=== PATIENT | male | born 1935 | race Caucasian/White ===

== ENCOUNTER → 2020-10-13 08:53 | Outpatient (BNVA) | payer MEDICARE, BC, SELFPAY | PROVIDERS: Referring Provider Internal Medicine; Visit Provider Nurse Practitioner Adult Health | DX: R41.89 Other symptoms and signs involving cognitive functions and awareness (principal); E11.22 Type 2 diabetes mellitus with diabetic chronic kidney disease; I12.9 Hypertensive chronic kidney disease with stage 1 through stage 4 chronic kidney disease, or unspecified chronic kidney disease; N18.9 Chronic kidney disease, unspecified | CPT/HCPCS: 99204; 99205; G2212 ==

== ENCOUNTER → 2020-11-25 13:16 | Outpatient (BNVA) | payer MEDICARE, BC, SELFPAY | PROVIDERS: Visit Provider Nurse Practitioner Adult Health | DX: R41.89 Other symptoms and signs involving cognitive functions and awareness (principal) | CPT/HCPCS: 99214; 99215 ==

== ENCOUNTER 2023-09-26 07:09 | Outpatient (REF) | payer MEDICARE, BC, SELFPAY ==
[2023-09-26 09:40] LABS: Abs Immature Grans 0.02 10^3/uL (0.0-0.06); Absolute Basophil Count 0.04 10^3/uL (0.0-0.2); Absolute Eosinophil Count 0.38 10^3/uL (0.0-0.7); Absolute Lymphocyte Count 1.64 10^3/uL (1.2-3.4); Absolute Monocyte Count 0.71 10^3/uL (0.1-0.8); Absolute Neutrophil Count 3.42 10^3/uL (1.2-6.7); Basophils % 0.6; Eosinophils % 6.1; HCT 29.3 % (40.0-50.0); HGB 9.6 g/dL (13.5-17.5); Immature Grans % 0.3; Lymphocytes % 26.4; MCH 30.1 pg (27.0-33.0); MCHC 32.8 % (32.0-36.0); MCV 92 fL (80-95); MPV 10.8 fL (8.0-11.0); Monocytes % 11.4; Neutrophils % 55.2; Platelet Count 170 10^3/uL (130-400); RBC 3.19 10^6/uL (4.36-5.78); RDW 12.9 % (11.8-14.1); WBC 6.21 10^3/uL (4.4-10.8)
[2023-09-26 10:00] LABS: ALT 13 U/L (16-63); AST 12 U/L (15-37); Albumin 2.6 g/dL (3.4-5.0); Alkaline Phosphatase 58 U/L (46-116); Anion Gap 10.3 mmol/L (3-11); BUN 53 mg/dL (7-18); Bilirubin, Total 0.3 mg/dL (0.2-1.0); CO2 25.7 mmol/L (21.0-32.0); CREATININE 2.3 mg/dL (0.70-1.30); Calcium 8.3 mg/dL (8.5-10.1); Chloride 110 mmol/L (98-107); Estimated GFR 26.98 (mL/min/1.73m2); Glucose 72 mg/dL (74-106); Potassium 4.8 mmol/L (3.5-5.1); Sodium 146 mmol/L (136-145); Total Protein 5.4 g/dL (6.4-8.2)
[2023-09-26 17:30] LABS: Hemoglobin A1C 7.1 % (<5.7)
[2023-09-26 17:39] LABS: TSH 2.39 uIU/Ml (0.36-3.74)
== END 2023-09-26 07:10 | disposition home or self-care (01) ==
LOC: LBN 07:09
PROVIDERS: PCP Family Medicine; Visit Provider Family Medicine
DX: D45 Polycythemia vera (principal); Z90.6 Acquired absence of other parts of urinary tract
CPT/HCPCS: 80053; 80164; 83036; 84443; 85025

== ENCOUNTER 2023-10-05 17:00 | Emergency (ER) | payer MEDICARE, BC, SELFPAY ==
[2023-10-05 17:01] VITALS: BP 196/81; PULSE 70; RESP 16; TEMP 37; O2SAT 96
--- NOTE | 2023-10-05 17:17 | ED.GENADUL_ITS ---
Discharge Plan Disposition Patient Disposition: [facility](SNF) Condition: Stable Discharge Details Clinical Impression: Anticoagulant long-term use, Dementia, Fall Primary Care Provider: Wade Sharma ED Provider: Christine Herrmann Home Meds and New Rx's Prescriptions: Continued cholecalciferol (vitamin D3) 25 mcg (1,000 unit) capsule 25 mcg PO DAILY acetaminophen 325 mg capsule 650 mg PO Q6H PRN amlodipine 5 mg tablet 10 mg PO DAILY aspirin 81 mg tablet,chewable 81 mg PO DAILY atenolol 100 mg tablet 25 mg PO DAILY Combivent Respimat 20-100 mcg/actuation mist 1 puff inhalation QID Rx Instructions: space evenly during waking hours fluticasone propionate 50 mcg/actuation spray,suspension 1 spray intranasal DAILY PRN Rx Instructions: administer into each nostril folic acid 1 mg tablet 1 mg PO DAILY omeprazole 20 mg capsule,delayed release(DR/EC) 20 mg PO DAILY vitamin [id number] acid 500-400 mcg tablet 1 tab PO DAILY Rx Instructions: administer with a meal dicyclomine 20 mg tablet 40 mg PO ONCE PRN rosuvastatin 10 mg tablet 20 mg PO DAILY atorvastatin 40 mg tablet 40 mg PO DAILY Patient Comments: TAKE 1 TABLET BY MOUTH EVERY DAY clopidogrel 75 mg tablet 75 mg PO DAILY Patient Comments: TAKE 1 TABLET BY MOUTH DAILY divalproex [Depakote] 125 mg tablet,delayed release (DR/EC) 250 mg PO QHS divalproex [Depakote ER] 250 mg tablet extended release 24 hr 125 mg PO TID escitalopram oxalate 5 mg tablet 5 mg PO DAILY bisacodyl [Dulcolax (bisacodyl)] 10 mg suppository 10 mg UT DAILY PRN lisinopril 20 mg tablet 20 mg PO DAILY Patient Comments: TAKE 1 TABLET BY MOUTH DAILY magnesium oxide 400 mg (241.3 mg magnesium) tablet 400 mg PO DAILY Patient Comments: TAKE 1 TABLET BY MOUTH DAILY pantoprazole 20 mg tablet,delayed release (DR/EC) 40 mg PO DAILY Patient Comments: TAKE 1 TABLET BY MOUTH DAILY olanzapine [Zyprexa] 2.5 mg tablet 2.5 mg PO DAILY olanzapine [Zyprexa] 2.5 mg tablet 2.5 mg PO DAILY PRN Discharge Instructions Instructions: Fall Prevention for Older Adults (ED) Additional Instructions: Follow up with primary care doctor within one week- you may need a brain MRI as it looks like there are possibly some new strokes or mass since 2020. Return to the emergency department for new or worsening symptoms including vomiting, numbness, focal weakness, vertigo, or if you have any other concerns. Referrals: Wade Sharma [Primary Care Provider] - [facility] General Date/Time Provider Initiated Documentation: 10/05/23 17:17 . Limitations to Documentation: no limitations . Information obtained by: patient, EMS and old records reviewed . HPI Narrative: 88yo M with dementia, on eliquis presenting [facility] after unwitnessed fall at some point today. Per EMS nursing facility staff reported patient is at his baseline. Patient denies LOC, unsure when he fell today. Reports mild headache, otherwise denies pain; declines pain medication. He is otherwise in his usual state of health with no fevers, chills, rash, nausea, vomiting, chest pain, shortness of breath, abdominal pain, numbness, tingling, weakness, vertigo, vision changes, lightheadedness, or other concerns. Related Data Home Medications Medication Instructions Recorded Confirmed acetaminophen 325 mg capsule 650 mg PO Q6H PRN 09/09/20 10/05/23 amlodipine 5 mg tablet 10 mg PO DAILY 09/09/20 10/05/23 aspirin 81 mg chewable tablet 81 mg PO DAILY 09/09/20 10/05/23 atenolol 100 mg tablet 25 mg PO DAILY 09/09/20 10/05/23 fluticasone propionate 50 1 spray intranasal DAILY PRN 09/09/20 10/05/23 mcg/actuation nasal spray,suspension folic acid 1 mg tablet 1 mg PO DAILY 09/09/20 10/05/23 ipratropium 20 mcg-albuterol 100 1 puff inhalation QID 09/09/20 10/05/23 mcg/actuation mist for inhalation (Combivent Respimat) omeprazole 20 mg capsule,delayed 20 mg PO DAILY 09/09/20 10/05/23 release vitamin B12 500 mcg-folic acid 400 1 tab PO DAILY 09/09/20 10/05/23 mcg tablet cholecalciferol (vitamin D3) 25 25 mcg PO DAILY 10/13/20 10/05/23 mcg (1,000 unit) capsule dicyclomine 20 mg tablet 40 mg PO ONCE PRN 11/25/20 10/05/23 rosuvastatin 10 mg tablet 20 mg PO DAILY 11/25/20 10/05/23 atorvastatin 40 mg tablet 40 mg PO DAILY 10/05/23 10/05/23 bisacodyl 10 mg rectal suppository 10 mg UT DAILY PRN 10/05/23 10/05/23 (Dulcolax (bisacodyl)) clopidogrel 75 mg tablet 75 mg PO DAILY 10/05/23 10/05/23 divalproex 125 mg tablet,delayed 250 mg PO QHS 10/05/23 10/05/23 release (Depakote) divalproex 250 mg tablet,extended 125 mg PO TID 10/05/23 10/05/23 release 24 hr (Depakote ER) escitalopram oxalate 5 mg tablet 5 mg PO DAILY 10/05/23 10/05/23 lisinopril 20 mg tablet 20 mg PO DAILY 10/05/23 10/05/23 magnesium oxide 400 mg (241.3 mg 400 mg PO DAILY 10/05/23 10/05/23 magnesium) tablet olanzapine 2.5 mg tablet (Zyprexa) 2.5 mg PO DAILY 10/05/23 10/05/23 olanzapine 2.5 mg tablet (Zyprexa) 2.5 mg PO DAILY PRN 10/05/23 10/05/23 pantoprazole 20 mg tablet,delayed 40 mg PO DAILY 10/05/23 10/05/23 release Allergies Allergy/AdvReac Type Severity Reaction Status Date / Time latex Allergy Mild rash Verified 10/05/23 17:14 aspirin [From Aggrenox] Allergy Unknown Other (See Verified 10/05/23 17:14 Comment) atorvastatin Allergy Unknown Other (See Verified 10/05/23 17:14 Comment) dipyridamole [From Aggrenox] Allergy Unknown Other (See Verified 10/05/23 17:14 Comment) levofloxacin Allergy Unknown Other (See Verified 10/05/23 17:14 Comment) pioglitazone [From Actos] AdvReac Mild nausea Verified 10/05/23 17:14 General Stated Complaint: HeadInjury LEON: 3 Review of Systems Narrative: see HPI Exam Narrative Exam Narrative: GENERAL: Alert, in no acute distress. SKIN: Warm and well perfused. HEAD: Small abrasion to right posterior scalp, hemostatic. Facial bones without deformities or tenderness. EYES: PERRL. No scleral icterus or conjunctival injection. Extraocular muscles intact without nystagmus or diplopia. No proptosis or enophthalmos. EARS: Normal appearing pinnae. NOSE: No discharge. No nasal septal hematoma. MOUTH: No malocclusion or trismus. Moist mucus membranes without blood. NECK: Trachea midline. No discolorations or edema. CV: Regular rate and rhythm, Normal s1 and s2. No murmurs, rubs, or gallops. PV: Radial pulses 2+ bilaterally and symmetric. 2+ capillary refill. No extremity edema. CHEST: No abrasions or ecchymosis. Chest symmetric with respirations. No chest wall tenderness. Lungs are clear to auscultation bilaterally. ABDOMEN: No ecchymosis or abrasions. Soft, nondistended, nontender. BACK: No abrasions, skin openings. ~4cm x 3cm oval echymosis to right low- thoracic region, appears old. Spine without bony tenderness, no step offs. PELVIC: Pelvis stable, nontender to lateral compression MSK: No gross deformities or discolorations or lesions. Tolerates full range of motion of extremities without tenderness. NEURO: ? GCS 14.? Fluent speech, no dysarthria. Motor- 5/5 strength symmetric bilateral upper and lower extremities Sensation- ?Intact to light touch and symmetric multiple dermatomes including upper and lower extremities Coordination- No dysmetria on finger to nose CRANIAL NERVES: II: Pupils equal and reactive, III, IV, : EOM intact, no gaze preference or deviation, no nystagmus. V: normal sensation in V1, V2, and V3 segments bilaterally VII: no asymmetry, no nasolabial fold flattening VIII: diminished hearing to speech IX, X: normal palatal elevation, no uvular deviation XI: 5/5 head turn and 5/5 shoulder shrug bilaterally XII: midline tongue protrusion Course Vital Signs Vital signs: Vital Signs Temperature 37.0 C 10/05/23 17:01 Pulse 70 10/05/23 17:01 Respiratory Rate 16 10/05/23 17:01 Blood Pressure 196/81 H 10/05/23 17:01 Pulse Oximetry 96 10/05/23 17:01 Temperature 37.0 C 10/05/23 17:01 Pulse 70 10/05/23 17:01 Respiratory Rate 16 10/05/23 17:01 Respiratory Effort Normal, Non-Labored 10/05/23 17:10 Respiratory Depth Normal 10/05/23 17:10 Respiratory Pattern Normal 10/05/23 17:10 Blood Pressure 196/81 H 10/05/23 17:01 Blood Pressure Position Sitting 10/05/23 17:01 Pulse Oximetry 96 10/05/23 17:01 Oxygen Delivery Method Room Air 10/05/23 17:01 Oxygen Flow Rate 0 10/05/23 17:01 Pain Level 0 10/05/23 17:10 Medical Decision Making 88yo M with hx stroke, CKD, HTN, T2DM, dementia, on eliquis presenting from [facility] after unwitnessed fall at some point today. Medical history from [facility] record review. Per EMS nursing facility staff reported patient is at his baseline. Patient denies LOC, unsure when he fell today. Reports mild headache, otherwise denies pain; declines pain medication. Hypertensive on arrival, vital signs otherwise reassuring. Small abrasion to posterior scalp, otherwise no acute traumatic findings (does have some fading echymosis to his back, patient not sure when this injury occurred). GCS 14, otherwise normal neurologic exam. Given patient is poor historian and on eliquis with known head strike, CT head/cspine ordered and independently reviewed. No acute hemmoraghe on my view, discussed with radiologist Dr. Adorno and agree with radiology read below. No indication for admission at this time; advised outpatient followup for further imaging to clarify incidental brain findings. Discharged back to [facility] Imaging Data Radiologic Study: Imaging: CT Scan Radiologist's impression: IMPRESSION: No evidence of acute cervical spine fracture, malalignment, nor acute compromise of the cervical spinal canal. Multilevel chronic degenerative disc disease. In the brain there is increased abnormal white matter hypodensity in the bilateral parietal regions, more so on the left side where there is white matter hypodensity significantly more than was evident on prior CT scan and MRI scan listed above. Either related to interval infarct or possibly edema. If clinically indicated follow-up contrast infused MRI can be performed to determine if there are underlying lesions. Quality:SDOH Health Related Social Needs: No Data to Display PFSH All Active Problems (Updated 10/05/23 @ 18:40 by Christine Herrmann MD) Fall (Acute) Dementia (Chronic) Anticoagulant long-term use (Acute) Cognitive changes (Acute) Medical History Actinic keratosis of multiple sites of head and neck Allergic rhinitis Carotid artery occlusion Cerebrovascular disease Chronic colitis Chronic kidney disease Cognitive changes Emphysema lung Ganglion cyst of dorsum of right wrist General unsteadiness Gout Hx of bladder problems Hyperlipidemia Hypertension Incisional hernia Lack of energy Leg fracture, left Localized edema Neurogenic dysfunction of the urinary bladder Obesity Osteoarthritis of knee, unspecified Simple chronic anemia Snoring Stroke Type 2 diabetes mellitus Urinary stress incontinence, male Vitamin D deficiency Surgical History H/O carotid endarterectomy H/O excision of ganglion cyst H/O hernia repair H/O ileostomy H/O prostatectomy H/O total knee replacement History of appendectomy History of carpal tunnel surgery History of esophagogastroduodenoscopy (EGD) Hx of cataract surgery Hx of colonoscopy Hx of shoulder surgery S/P left knee arthroscopy Family History Brother Prostate cancer Leukemia Brother Prostate cancer Diabetes BARBARA on CPAP Brother , AT 70 Myocardial infarction Father Myocardial infarction Diabetes Mother Cerebral hemorrhage Social History Smoking/Tobacco Use Status: Former Tobacco Use Smoking risk assessment performed?: Yes Alcohol Intake: never Drug use: Never Household members: spouse Housing: house Number of Children: 2 number of grandchildren: 4 Pets and animals: Yes Pets and animals: cat(s) What is your relationship status?: Panel score (0-1 are the most socially isolated patients): 1 What type of physical activity do you participate in: none Seatbelt use: always Do you feel safe at home: Yes Do you feel safe in your relationship?: Yes
--- NOTE | 2023-10-05 17:57 | DI.CT_ITS ---
Exam(s) CT HEAD CERVICAL SPINE WO EXAM: CT HEAD CERVICAL SPINE WO CLINICAL HISTORY: fall with HS, on eliquis. TECHNIQUE: Imaging Protocol: Axial computed tomography images with coronal and sagittal reformatted images were created and reviewed COMPARISON: CT CT HEAD WO CONTRAST from 05/26/2020 MR MR BRAIN WO CONTRAST from 11/02/2020 FINDINGS: BRAIN: There are no skull fractures nor fluid in the visualized paranasal sinuses. There is no evidence of intracranial hemorrhage, mass effect, or shift of midline structures. There are no extra-axial fluid collections. The ventricles are not enlarged or shifted and there is no blo od within the ventricular system nor within the basal cisterns. There is abundant bilateral periventricular hypodensity consistent with chronic small vessel disease. This has increased in both parietal lobes when compared to prior imaging studies, particularly on t he left side where there appears to be some probable edema in the high left parietal white matter. CERVICAL SPINE: No evidence of fracture, listhesis, nor offset of the spinal laminar line. There is multilevel chron ic disc space narrowing. There is mild facet arthropathy. No facet malalignment. No significant os seous lesions. IMPRESSION: No evidence of acute cervical spine fracture, malalignment, nor acute compromise of the cervical spin al canal. Multilevel chronic degenerative disc disease. In the brain there is increased abnormal white matter hypodensity in the bilateral parietal regions, more so on the left side where there is white matter hypodensity significantly more than was evident on prior CT scan and MRI scan listed above. Either related to interval infarct or possibly edema. I f clinically indicated follow-up contrast infused MRI can be performed to determine if there are unde rlying lesions. Called by myself to ER physician RADIATION DOSE DELIVERED: Total DLP DATA REPOSITORY: All CT scans at this facility are submitted to the National Radiology Data Registry (NRDR) Dose Index Registry (DIR) with the [employer] ([employer]). RADIATION OPTIMIZATION: All CT scans at this facility use at least one of these dose optimization te chniques: automated exposure control; mA and/or kV adjustment per patient size (includes targeted exa ms where dose is matched to clinical indication); or iterative reconstruction.
[2023-10-05 18:55] VITALS: BP 196/50; PULSE 63; RESP 14; O2SAT 97
== END 2023-10-05 19:12 | disposition skilled nursing facility (03) ==
PROVIDERS: Emergency Provider Student in an Organized Health Care Education/Training Program; PCP Family Medicine
DX: S00.01XA Abrasion of scalp, initial encounter (principal); F03.90 Unspecified dementia, unspecified severity, without behavioral disturbance, psychotic disturbance, mood disturbance, and anxiety; I12.9 Hypertensive chronic kidney disease with stage 1 through stage 4 chronic kidney disease, or unspecified chronic kidney disease; N18.9 Chronic kidney disease, unspecified; E11.22 Type 2 diabetes mellitus with diabetic chronic kidney disease; Z79.02 Long term (current) use of antithrombotics/antiplatelets; Z79.84 Long term (current) use of oral hypoglycemic drugs; Z79.82 Long term (current) use of aspirin; Z87.891 Personal history of nicotine dependence; W18.30XA Fall on same level, unspecified, initial encounter; Y92.099 Unspecified place in other non-institutional residence as the place of occurrence of the external cause
CPT/HCPCS: 99284; 70450; 72125

== ENCOUNTER 2023-10-27 10:20 | Emergency (ER) | payer MEDICARE, BC, SELFPAY ==
[2023-10-27] VITALS (212 sets, daily range): BP systolic 78–192; BP diastolic 27–80; PULSE 41–83; RESP 9–25; TEMP 36.4–36.7; O2SAT 89–100
--- NOTE | 2023-10-27 10:46 | ED.GENADUL_ITS ---
Discharge Plan Disposition Patient Disposition: Assisted Facility(SNF) Condition: Good Discharge Details Clinical Impression: Dementia, Agitation Primary Care Provider: Wade Sharma ED Provider: Christine Herrmann Home Meds and New Rx's Prescriptions: Continued cholecalciferol (vitamin D3) 25 mcg (1,000 unit) capsule 25 mcg PO DAILY acetaminophen 325 mg capsule 650 mg PO Q6H PRN amlodipine 5 mg tablet 10 mg PO DAILY aspirin 81 mg tablet,chewable 81 mg PO DAILY atenolol 100 mg tablet 25 mg PO DAILY Combivent Respimat 20-100 mcg/actuation mist 1 puff inhalation QID Rx Instructions: space evenly during waking hours fluticasone propionate 50 mcg/actuation spray,suspension 1 spray intranasal DAILY PRN Rx Instructions: administer into each nostril folic acid 1 mg tablet 1 mg PO DAILY omeprazole 20 mg capsule,delayed release(DR/EC) 20 mg PO DAILY vitamin D46-ckpoa acid 500-400 mcg tablet 1 tab PO DAILY Rx Instructions: administer with a meal dicyclomine 20 mg tablet 40 mg PO ONCE PRN rosuvastatin 10 mg tablet 20 mg PO DAILY atorvastatin 40 mg tablet 40 mg PO DAILY Patient Comments: TAKE 1 TABLET BY MOUTH EVERY DAY clopidogrel 75 mg tablet 75 mg PO DAILY Patient Comments: TAKE 1 TABLET BY MOUTH DAILY divalproex [Depakote] 125 mg tablet,delayed release (DR/EC) 250 mg PO QHS divalproex [Depakote ER] 250 mg tablet extended release 24 hr 125 mg PO TID escitalopram oxalate 5 mg tablet 5 mg PO DAILY bisacodyl [Dulcolax (bisacodyl)] 10 mg suppository 10 mg DC DAILY PRN lisinopril 20 mg tablet 20 mg PO DAILY Patient Comments: TAKE 1 TABLET BY MOUTH DAILY magnesium oxide 400 mg (241.3 mg magnesium) tablet 400 mg PO DAILY Patient Comments: TAKE 1 TABLET BY MOUTH DAILY pantoprazole 20 mg tablet,delayed release (DR/EC) 40 mg PO DAILY Patient Comments: TAKE 1 TABLET BY MOUTH DAILY olanzapine [Zyprexa] 2.5 mg tablet 2.5 mg PO DAILY olanzapine [Zyprexa] 2.5 mg tablet 2.5 mg PO DAILY PRN donepezil 5 mg tablet 5 mg PO DAILY Discharge Instructions Instructions: Dementia (ED) Additional Instructions: Your test today are reassuring including her CT abdomen and pelvis and CT head Your anemia has worsened ever so slightly dropped from 9.5-8.3, recommend having this rechecked It sounds like you are increasing the Zyprexa to 5 mg twice a day A referral has been placed to [facility] for further assessment from a neuropsych standpoint Please return should you have new or worsening complaints Discharge Data Discharge Date/Time-TO BE ENTERED AT DEPARTURE: 10/28/23 01:28 HPI <OLU Martinez - Last Filed: 10/28/23 08:15> General Date/Time Provider Initiated Documentation: 10/27/23 10:36 . HPI Narrative: This 88-year-old male is presenting to this facility with acute exacerbation of chronic agitation secondary to cognitive decline and vascular dementia. Patient has had frequent falls secondary to increase psychiatric medications and may feel that patient is declining, they like to exclude any medical cause of patient's complaints. Patient is a poor historian and unable to give me any additional history at this time. Related Data Home Medications Medication Instructions Recorded Confirmed acetaminophen 325 mg capsule 650 mg PO Q6H PRN 09/09/20 10/27/23 amlodipine 5 mg tablet 10 mg PO DAILY 09/09/20 10/27/23 aspirin 81 mg chewable tablet 81 mg PO DAILY 09/09/20 10/27/23 atenolol 100 mg tablet 25 mg PO DAILY 09/09/20 10/27/23 fluticasone propionate 50 1 spray intranasal DAILY PRN 09/09/20 10/27/23 mcg/actuation nasal spray,suspension folic acid 1 mg tablet 1 mg PO DAILY 09/09/20 10/27/23 ipratropium 20 mcg-albuterol 100 1 puff inhalation QID 09/09/20 10/27/23 mcg/actuation mist for inhalation (Combivent Respimat) omeprazole 20 mg capsule,delayed 20 mg PO DAILY 09/09/20 10/27/23 release vitamin B12 500 mcg-folic acid 400 1 tab PO DAILY 09/09/20 10/27/23 mcg tablet cholecalciferol (vitamin D3) 25 25 mcg PO DAILY 10/13/20 10/27/23 mcg (1,000 unit) capsule dicyclomine 20 mg tablet 40 mg PO ONCE PRN 11/25/20 10/27/23 rosuvastatin 10 mg tablet 20 mg PO DAILY 11/25/20 10/27/23 atorvastatin 40 mg tablet 40 mg PO DAILY 10/05/23 10/27/23 bisacodyl 10 mg rectal suppository 10 mg DC DAILY PRN 10/05/23 10/27/23 (Dulcolax (bisacodyl)) clopidogrel 75 mg tablet 75 mg PO DAILY 10/05/23 10/27/23 divalproex 125 mg tablet,delayed 250 mg PO QHS 10/05/23 10/27/23 release (Depakote) divalproex 250 mg tablet,extended 125 mg PO TID 10/05/23 10/27/23 release 24 hr (Depakote ER) escitalopram oxalate 5 mg tablet 5 mg PO DAILY 10/05/23 10/27/23 lisinopril 20 mg tablet 20 mg PO DAILY 10/05/23 10/27/23 magnesium oxide 400 mg (241.3 mg 400 mg PO DAILY 10/05/23 10/27/23 magnesium) tablet olanzapine 2.5 mg tablet (Zyprexa) 2.5 mg PO DAILY 10/05/23 10/27/23 olanzapine 2.5 mg tablet (Zyprexa) 2.5 mg PO DAILY PRN 10/05/23 10/27/23 pantoprazole 20 mg tablet,delayed 40 mg PO DAILY 10/05/23 10/27/23 release donepezil 5 mg tablet 5 mg PO DAILY 10/27/23 10/27/23 Allergies Allergy/AdvReac Type Severity Reaction Status Date / Time latex Allergy Mild rash Verified 10/27/23 10:36 aspirin [From Aggrenox] Allergy Unknown Other (See Verified 10/27/23 10:36 Comment) atorvastatin Allergy Unknown Other (See Verified 10/27/23 10:36 Comment) dipyridamole [From Aggrenox] Allergy Unknown Other (See Verified 10/27/23 10:36 Comment) levofloxacin Allergy Unknown Other (See Verified 10/27/23 10:36 Comment) pioglitazone [From Actos] AdvReac Mild nausea Verified 10/27/23 10:36 General Stated Complaint: AMS/LOC LEON: 3 Exam <OLU Martinez - Last Filed: 10/28/23 08:15> Narrative Exam Narrative: Patient is alert, and at this reported cognitive baseline aside from acute agitation per and facility. There is no visible sign of trauma, pupils equal round reactive to light and accommodation, moist mucous membranes, lungs are clear to auscultation, cardiac rate rhythm regular, no abdominal tenderness or visible evidence of trauma, alert, agitated Course <OLU Martinez - Last Filed: 10/28/23 08:15> Vital Signs Vital signs: Vital Signs Temperature 36.7 C 10/27/23 10:23 Pulse 66 10/27/23 10:23 Respiratory Rate 16 10/27/23 10:23 Blood Pressure 160/80 H 10/27/23 10:23 Pulse Oximetry 95 10/27/23 10:23 Temperature 36.7 C 10/27/23 10:23 Temperature Source Temporal Artery Scan 10/27/23 10:23 Pulse 66 10/27/23 10:23 Respiratory Rate 16 10/27/23 10:23 Blood Pressure 160/80 H 10/27/23 10:23 Blood Pressure Position Supine 10/27/23 10:23 Pulse Oximetry 95 10/27/23 10:23 Oxygen Delivery Method Room Air 10/27/23 10:23 Oxygen Flow Rate 0 10/27/23 10:23 <Nereida Mata - Last Filed: 10/27/23 16:27> *please see progress note for my assessment and updates* Procedures <Justin Yee MD - Last Filed: 10/27/23 16:26> Procedural Sedation Indication: diagnostic imaging procedure ASA Class: II Preparation: hall monitor applied, pulse oximeter and supplemental O2 applied Ketamine: IV Ketamine dose (mg): 67 Patient Tolerated Procedure: well Complications: hypoxia (low 90s) Interventions: oxygen applied Medical Decision Making <OLU Martinez - Last Filed: 10/28/23 08:15> This is a complex 88-year-old male presenting from the health and rehab for acute exacerbation of chronic agitation and vascular dementia secondary to reported numerous falls and intermittent acute agitation per [facility], I did speak with patient's DPOA, Liliana. She requests that we restrain patient and do what ever possible to figure out why patient is acutely agitated. She understands that this may cause unnecessary distress. Patient is listed as DNR/DNI, and do not transfer for life-saving intervention only. Labs do not show significant acute abnormality, mild decrease in hemoglobin from 9.5-8.3. FDC does not endorse any obvious blood in stool. Urinalysis not show evidence of acute infection, CT head does not show evidence of acute abnormality, patient was given sedation for further evaluation with CT chest abdomen and pelvis to evaluate for any trauma. Moderate sedation was indicated as patient has received 2 mg of Haldol, 3 mg intermittently of IM Ativan and 5 mg of oral Zyprexa with continued persistent agitation and numerous attempts of CT scan which were unsuccessful secondary to agitation. After CT scan patient will be medically cleared and will likely need additional psychiatric intervention. I have spoken with Alexa, nurse practitioner on-call for [facility] and she will speak to her medical billing clerk as to whether or not they can initiate care from their facility. Have also spoken with Haritha Pardo care homer and they will delineate additional care at this time. I spoke with Alexa nurse practitioner from [facility] [place] [facility] and they are agreeable to accepting patient back to their facility once he is medically cleared, they have asked that we place a referral to [facility]. At this time patient is still recovering from moderate sedation, he will need reassessment and review of his CT chest abdomen and pelvis and CT head prior to discharge. Patient has received approximately 7.5 mg of Zyprexa today, he could accommodate 2.5 mg of Zyprexa as needed. Care will be transitioned to Nereida QUILL PICKING MACHINE OPERATOR pending reassessment post sedation and review of ct's. I spent an extensive period of time with care management and [facility], approximately 20 minutes Quality:SDOH Health Related Social Needs: No Data to Display <Justin Yee MD - Last Filed: 10/27/23 16:26> Date: 10/27/23 Time: 10:47 Note: Patient seen, examined, and discussed with OLU Feng. I agree with treatment plan as discussed/documented. PFSH <OLU Martinez - Last Filed: 10/28/23 08:15> All Active Problems (Updated 10/27/23 @ 15:51 by OLU Martinez) Agitation (Acute) Fall (Acute) Dementia (Chronic) Anticoagulant long-term use (Acute) Cognitive changes (Acute) Medical History Actinic keratosis of multiple sites of head and neck Allergic rhinitis Carotid artery occlusion Cerebrovascular disease Chronic colitis Chronic kidney disease Cognitive changes Emphysema lung Ganglion cyst of dorsum of right wrist General unsteadiness Gout Hx of bladder problems Hyperlipidemia Hypertension Incisional hernia Lack of energy Leg fracture, left Localized edema Neurogenic dysfunction of the urinary bladder Obesity Osteoarthritis of knee, unspecified Simple chronic anemia Snoring Stroke Type 2 diabetes mellitus Urinary stress incontinence, male Vitamin D deficiency Surgical History H/O carotid endarterectomy H/O excision of ganglion cyst H/O hernia repair H/O ileostomy H/O prostatectomy H/O total knee replacement History of appendectomy History of carpal tunnel surgery History of esophagogastroduodenoscopy (EGD) Hx of cataract surgery Hx of colonoscopy Hx of shoulder surgery S/P left knee arthroscopy Family History Brother Prostate cancer Leukemia Brother Prostate cancer Diabetes BARBARA on CPAP Brother , AT 70 Myocardial infarction Father Myocardial infarction Diabetes Mother Cerebral hemorrhage Social History Smoking/Tobacco Use Status: Former Tobacco Use Smoking risk assessment performed?: Yes Alcohol Intake: never Drug use: Never Household members: spouse Housing: house Number of Children: 2 number of grandchildren: 4 Pets and animals: Yes Pets and animals: cat(s) What is your relationship status?: Panel score (0-1 are the most socially isolated patients): 1 What type of physical activity do you participate in: none Seatbelt use: always Do you feel safe at home: Yes Do you feel safe in your relationship?: Yes Sign Out <OLU Martinez - Last Filed: 10/28/23 08:15> Sign Out Data: Sign Out Comment: pending recovery from sedation and ct interpretation Last updated by Margot Feng PA at 10/27/23 15:53 Sign Out Comment: Jose is an 88-year-old male who presented to the ED today with acute exacerbation of chronic agitation secondary to cognitive decline and vascular dementia. [facility] was concerned patient is declining, wanted to exclude any medical cause of patient's complaints. Overall workup was reassuring, including labs and CT head and abdomen/pelvis. [facility] and rehab has agreed to take patient back to facility after medical clearance. A referral has been placed to [facility] for [facility] psych placement by care management. As Jose is still sleeping after procedural sedation, plan to observe patient until he has returned to baseline mental status/wakefulness and discharge back to [facility] and rehab. Liliana is agreeable with plan of care. Last updated by Nereida Mantilla at 10/27/23 22:44
[2023-10-27] MEDS: LORazepam 2 MG/ML VIAL 1 MG IM ×2 (10:50→12:30)
[2023-10-27] MEDS: OLANZapine 5 MG TAB PO (11:28)
--- NOTE | 2023-10-27 12:00 | RT.EKG_ITS ---
APPROVED REPORT Exam: Resting ECG Reason for Exam: ams Patient Location: E HR:58 bpm ECG Measurements Heart Rate 58 AXIS MA 206 P 0 QRSd 114 QRS -37 QT 446 T 45 QTc 434 Conclusion Sinus bradycardia...rate< 60 Atrial premature complex...SV complex w/ short R-R interval Abnrm R prog, consider ASMI or lead placement...Q >30mS, diminished R, V1-V2
--- NOTE | 2023-10-27 12:00 | DI.CT_ITS ---
Exam(s) CT HEAD WO EXAM: CT HEAD WO CLINICAL HISTORY: frequent falls. TECHNIQUE: Imaging Protocol: Axial computed tomography images with coronal and sagittal reformatted images were created and reviewed COMPARISON: CT CT HEAD CERVICAL SPINE WO from 10/05/2023 FINDINGS: Interpretation is limited by severe motion artifact all images. Apparently this ER patient was not a ble to be cooperative despite numerous imaging attempts There are no obvious skull fractures. There is no fluid in the visualized paranasal sinuses. There is no evidence of obvious intracranial hemorrhage, obvious mass effect, or shift of midline str uctures. There are no extra-axial fluid collections. Ventricular size is unchanged. Remains commen surate with the size of the overlying cortical sulci. There is abundant bilateral periventricular hypodensity again noted consistent with chronic small ves josiah disease. Evidence of previous infarcts in both parietal lobes as well as probably right frontal. No obvious new infarcts. IMPRESSION: Severely limited study but no obvious acute intracranial findings on this noninfused CT scan of the b rain nor obvious significant change when compared to images of 10/05/2023. Called by myself to ER provider. RADIATION DOSE DELIVERED: 783.48mGy.cm Total DLP DATA REPOSITORY: All CT scans at this facility are submitted to the National Radiology Data Registry (NRDR) Dose Index Registry (DIR) with the [employer] (ACR). RADIATION OPTIMIZATION: All CT scans at this facility use at least one of these dose optimization te chniques: automated exposure control; mA and/or kV adjustment per patient size (includes targeted exa ms where dose is matched to clinical indication); or iterative reconstruction.
[2023-10-27 13:13] LABS: Abs Immature Grans 0.04 10^3/uL (0.0-0.06); Absolute Basophil Count 0.03 10^3/uL (0.0-0.2); Absolute Eosinophil Count 0.56 10^3/uL (0.0-0.7); Absolute Lymphocyte Count 1.59 10^3/uL (1.2-3.4); Absolute Neutrophil Count 5.69 10^3/uL (1.2-6.7); Basophils % 0.3 %; Eosinophils % 6.3 %; HCT 25.1 % (40.0-50.0); HGB 8.3 g/dL (13.5-17.5); Immature Grans % 0.4 %; Lymphocytes % 17.8 %; MCH 30.3 pg (27.0-33.0); MCHC 33.1 % (32.0-36.0); MCV 92 fL (80-95); MPV 9.2 fL (8.0-11.0); Monocytes % 11.2 %; Platelet Count 199 10^3/uL (130-400); RBC 2.74 10^6/uL (4.36-5.78); RDW 14.9 % (11.8-14.1); RDW-SD 49.4 fL; WBC 8.91 10^3/uL (4.4-10.8)
--- NOTE | 2023-10-27 13:15 | DI.CT_ITS ---
Exam(s) CT CHEST/ABD/PEL WO EXAM: CT CHEST/ABD/PEL WO CLINICAL HISTORY: drop hgb, ams. TECHNIQUE: Imaging Protocol: Axial computed tomography images with coronal and sagittal reformatted images were created and reviewed CONTRAST MATERIAL: Intravenous: none Oral: None COMPARISON: No exams were available for comparison FINDINGS: CHEST: LUNGS: There are increased dependent markings in both lung posteriorly but there are no confluent inf iltrates evident. There are no pleural effusions. No ominous part MEDIASTINUM: No evidence of sternal fracture nor mediastinal hematoma. No significant hilar nor medi astinal adenopathy. Visualized thyroid unremarkable. CARDIAC: Mild cardiomegaly. No pericardial effusion coronary artery calcification is noted. Diamete r of the ascending thoracic aorta is slightly prominent measuring 3.9 cm. OSSEOUS: No acute fractures evident.No significant osseous lesions.. ABDOMEN: There is no ascites. No evidence of bowel wall nor mesenteric hematoma. LIVER: There are no obvious focal hepatic lesions evident of this noninfused study. GALLBLADDER/BILIARY: Small gallstone noted on the pending wall the gallbladder. No obvious gallbladd er wall edema nor pericholecystic fluid. The gallbladder is not distended. CBD is not dilated. PANCREAS: No evidence of obvious pancreatic mass nor dilatation of the pancreatic duct. SPLEEN: Spleen is not enlarged. No obvious intrasplenic lesions. ADRENALS: There are no significant adrenal masses. KIDNEYS: No calculi nor hydronephrosis. No obvious solid renal masses. No cysts evident. ABDOMINAL AORTA: Calcified but not enlarged. Common iliac arteries are also calcified but not enlarg ed. LYMPH NODES: There is no retroperitoneal nor para-aortic adenopathy. ABDOMINAL WALL/GI: There is anterior abdominal wall supraumbilical sac which measures 6 cm wide by 1. 8 cm AP by 3 cm craniocaudal. Does not contain bowel loops. Stomach and duodenum appear unremarkable as do left upper quadrant jejunal loops. There is evidence of small bowel surgery right-side of the abdomen and there is a dilated small bowel loop at this leve l measuring approximately 6 cm across by 6 cm AP. No pneumatosis. No surrounding fluid. No free ai r. PELVIS: LYMPH NODES: There is no intrapelvic nor inguinal adenopathy. GI: No evidence of appendicitis.There are sigmoid diverticuli. No evidence of acute diverticulitis. URINARY BLADDER: No calculi nor obvious masses evident REPRODUCTIVE: Prostate not seen and is probably surgically absent. OSSEOUS: Left hip hardware. No acute fractures. Healed fracture of the right inferior pubic ramus n oted. No acute osseous findings. IMPRESSION: 1. Extensive sigmoid diverticulosis. No obvious acute diverticulitis. 2. Small gallstone noted. No evidence of obvious acute cholecystitis. 3. There is a single dilated small bowel loop in the right side of the abdomen which appears to be as sociated with anastomosis, this bowel loop measuring 6 x 6 cm and not appearing edematous. There are no dilated bowel loops proximal to this level nor collapse of bowel loops distal to this level. 4. Prostate appears to be surgically absent. No significant bone lesions identified. 5. Left hip lag screw in place secured by sideplate. Other findings as above. Report called by myself to ER provider. RADIATION DOSE DELIVERED: 1,224.58mGy.cm Total DLP DATA REPOSITORY: All CT scans at this facility are submitted to the National Radiology Data Registry (NRDR) Dose Index Registry (DIR) with the [employer] (ACR). RADIATION OPTIMIZATION: All CT scans at this facility use at least one of these dose optimization te chniques: automated exposure control; mA and/or kV adjustment per patient size (includes targeted exa ms where dose is matched to clinical indication); or iterative reconstruction.
[2023-10-27 13:35] LABS: ALT 15 U/L (16-63); AST 16 U/L (15-37); Albumin 2.4 g/dL (3.4-5.0); Alkaline Phosphatase 87 U/L (46-116); Anion Gap 8.9 mmol/L (3-11); BUN 32 mg/dL (7-18); Bilirubin, Total 0.3 mg/dL (0.2-1.0); CO2 28.1 mmol/L (21.0-32.0); Calcium 8.8 mg/dL (8.5-10.1); Chloride 106 mmol/L (98-107); Glucose 107 mg/dL (74-106); Potassium 5.1 mmol/L (3.5-5.1); Sodium 143 mmol/L (136-145); TSH (W/Ref FT4) 2.59 uIU/mL (0.36-3.74); Total Protein 5.6 g/dL (6.4-8.2)
[2023-10-27 14:07] LABS: Bilirubin Negative (Negative); Blood Negative (Negative); Clarity Clear (Clear); Glucose Negative (Negative); Ketones Negative (Negative); Leukocyte Esterase Negative (Negative); Nitrite Negative (Negative); Urobilinogen 0.2 mg/dL (Up to 0.2)
[2023-10-27] MEDS: Haloperidol 5 MG/ML VIAL 2 MG IV (14:17)
[2023-10-27 14:25] LABS: Bacteria Rare HPF (Negative); C & S Indicated? No; Casts 3-5 Fine Granular LPF (Negative); Crystals Negative HPF (Negative); Epithelial Cells Moderate HPF (Negative); Mucus Negative (Negative); RBC Negative HPF (0-2); WBC Negative HPF (0-5)
--- NOTE | 2023-10-27 14:45 | DI.CT_ITS ---
Exam(s) CT HEAD WO EXAM: CT HEAD WO CLINICAL HISTORY: ams, fall. TECHNIQUE: Imaging Protocol: Axial computed tomography images with coronal and sagittal reformatted images were created and reviewed COMPARISON: CT CT HEAD CERVICAL SPINE WO from 10/05/[address] HEAD WO from 10/27/2023 FINDINGS: Studies repeated following medication automatic vulcanizing operator. There are no skull fractures. There is no fluid in the visualized paranasal sinuses. There is no evidence of intracranial hemorrhage, mass effect, or shift of midline structures. There are no extra-axial fluid collections. The ventricles are not enlarged or shifted and there is no blo od within the ventricular system nor within the basal cisterns. Again noted is abundant bilateral periventricular hypodensity consistent with chronic small vessel di sease. Also evidence of previous infarcts in bilateral parietal occipital regions right frontal. IMPRESSION: Findings as above but unchanged from 10/05/2023. RADIATION DOSE DELIVERED: 802.6mGy.cm Total DLP DATA REPOSITORY: All CT scans at this facility are submitted to the National Radiology Data Registry (NRDR) Dose Index Registry (DIR) with the [employer] (ACR). RADIATION OPTIMIZATION: All CT scans at this facility use at least one of these dose optimization te chniques: automated exposure control; mA and/or kV adjustment per patient size (includes targeted exa ms where dose is matched to clinical indication); or iterative reconstruction.
[2023-10-27] MEDS: Ketamine 500 MG/10 ML VIAL 67 MG IVP (14:57)
--- NOTE | 2023-10-27 16:27 | W.EDPROG ---
Date of service: 10/27/23 Time of Service: 16:00 Medical Decision Making Signout report received from Margot Feng, gloria HAJI. I did independently review patient workup today. Mild decrease in H&H from previous on 09-26-23, 8.3 and 25.1 today versus 9.6 and 29.3. CMP unchanged from previous. UA reassuring, no signs of infection. CT abdomen/pelvis and head both reassuring, or no acute findings. 1630: Jose is still sleeping s/p procedural sedation for CT scan, vital signs stable on monitor. Updated Liliana with patient results and plan to discharge back to [facility]. She is agreeable with plan of care. 2100: Jose has remained asleep, VSS on monitor. One-to-one monitor at bedside. Quality:SDOH Health Related Social Needs: No Data to Display Sign Out Sign Out Data: Sign Out Comment: pending recovery from sedation and ct interpretation Last updated by Margot Feng PA at 10/27/23 15:53 Discharge Plan Disposition Patient Disposition: Home Discharge Details Clinical Impression: Dementia, Agitation Primary Care Provider: Wade Sharma ED Provider: Nereida Mantilla Home Meds and New Rx's Prescriptions: Continued cholecalciferol (vitamin D3) 25 mcg (1,000 unit) capsule 25 mcg PO DAILY acetaminophen 325 mg capsule 650 mg PO Q6H PRN amlodipine 5 mg tablet 10 mg PO DAILY aspirin 81 mg tablet,chewable 81 mg PO DAILY atenolol 100 mg tablet 25 mg PO DAILY Combivent Respimat 20-100 mcg/actuation mist 1 puff inhalation QID Rx Instructions: space evenly during waking hours fluticasone propionate 50 mcg/actuation spray,suspension 1 spray intranasal DAILY PRN Rx Instructions: administer into each nostril folic acid 1 mg tablet 1 mg PO DAILY omeprazole 20 mg capsule,delayed release(DR/EC) 20 mg PO DAILY vitamin B24-xqzyb acid 500-400 mcg tablet 1 tab PO DAILY Rx Instructions: administer with a meal dicyclomine 20 mg tablet 40 mg PO ONCE PRN rosuvastatin 10 mg tablet 20 mg PO DAILY atorvastatin 40 mg tablet 40 mg PO DAILY Patient Comments: TAKE 1 TABLET BY MOUTH EVERY DAY clopidogrel 75 mg tablet 75 mg PO DAILY Patient Comments: TAKE 1 TABLET BY MOUTH DAILY divalproex [Depakote] 125 mg tablet,delayed release (DR/EC) 250 mg PO QHS divalproex [Depakote ER] 250 mg tablet extended release 24 hr 125 mg PO TID escitalopram oxalate 5 mg tablet 5 mg PO DAILY bisacodyl [Dulcolax (bisacodyl)] 10 mg suppository 10 mg [place] DAILY PRN lisinopril 20 mg tablet 20 mg PO DAILY Patient Comments: TAKE 1 TABLET BY MOUTH DAILY magnesium oxide 400 mg (241.3 mg magnesium) tablet 400 mg PO DAILY Patient Comments: TAKE 1 TABLET BY MOUTH DAILY pantoprazole 20 mg tablet,delayed release (DR/EC) 40 mg PO DAILY Patient Comments: TAKE 1 TABLET BY MOUTH DAILY olanzapine [Zyprexa] 2.5 mg tablet 2.5 mg PO DAILY olanzapine [Zyprexa] 2.5 mg tablet 2.5 mg PO DAILY PRN donepezil 5 mg tablet 5 mg PO DAILY Discharge Instructions Instructions: Dementia (ED) Additional Instructions: Your test today are reassuring including her CT abdomen and pelvis and CT head Your anemia has worsened ever so slightly dropped from 9.5-8.3, recommend having this rechecked It sounds like you are increasing the Zyprexa to 5 mg twice a day A referral has been placed to [facility] for further assessment from a neuropsych standpoint Please return should you have new or worsening complaints
--- NOTE | 2023-10-27 16:31 | CMPROGNOTE_ITS ---
Date of service: 10/27/23 Time of Service: 16:31 Care Management Progress Note Progress Note Text Progress Note Text: SAGAR was consulted by ED provider Margot Feng regarding Azeem, who resides at [facility] and was transferred to the ED due to increased agitation. He has a reported history of vascular dementia, and has lived at [facility] for approximately 1.5 months. Margot stated that when communicating with Alexa, the SUPERVISOR [employer] at [facility] regarding Azeem's plan of care, Alexa stated that they are unable to accommodate his needs at the facility. SAGAR discussed this with Margot, as Azeem resides at the facility, they are responsible for changing his residence if they are planning to discharge him, and it is not appropriate for him to be left at the hospital, as this would be considered abandonment of their patient. At that time, Margot was completing a medical work up and noted that he did require medication management for his agitation. SAGAR contacted Quinn Gary, [employer], who is looking into the legal obligations of the rehab facility. JESENIA Liu at [facility] contacted the medical resident, who agreed that they cannot refuse for him to return if he is medically managed. SAGAR offered to send a referral to [facility] for consideration for admission. SAGAR sent the referral and contacted [facility] by phone to inform admissions that he will be returning to [facility], and they can follow up with JESENIA Liu, regarding the referral. SDOH(Care Management) Screening Will the Patient Participate in the Screening?: Unable to obtain
--- NOTE | 2023-10-27 21:51 | NUR.NOTE ---
report given to MANDEEP Goldstein and care relinquished Nursing Note:
--- NOTE | 2023-10-27 23:09 | W.EDPROG ---
Date of service: 10/27/23 Time of Service: 23:00 Medical Decision Making This patient was signed to me. Please see previous notes for H&P and initial eval. In brief, 88yo M presenting with worsening agitation and more frequent falls (falls after increasing dose of antipsychotics). Sedated for CT scan to evaluate for potential provoking pathology, slow to clear from sedation. Remains in the ED for recovery; will discharge back to nursing facility once awake and taking PO. Noted on routine record review that patient earlier had episode of hypotension charted, 80's/30's and bradycardiac in the 40's. Assessed at bedside, patient remains on 1:1 observation, appears to be sleeping comfortably. Reassuring prior workup; suspect 2/t sedation & delayed clearance, also note that patient has been in the ED for ~12 hours presumably without PO. Will give small 500cc bolus, send labs, and start mIVF. Prior to bolus being administered patient woke, BP improved without intervention (if value was accurate to begin within). Bolus canceled, did proceed with mIVF. Repeat labs as below, CMP reassuring with no significant changes. VBG with mild respiratory acidosis consistent with delayed recovery from sedation. On reassessment patient awake, alert, able to take PO without issue. BP remains acceptable and he has no oxygen requirement. Recovered from sedation. Discharged back to facility; discharge instructions sent with patient. Quality:[facility] Health Related Social Needs: No Data to Display Sign Out Sign Out Data: Sign Out Comment: pending recovery from sedation and ct interpretation Last updated by Margot Feng PA at 10/27/23 15:53 Sign Out Comment: Jose is an 88-year-old male who presented to the ED today with acute exacerbation of chronic agitation secondary to cognitive decline and vascular dementia. [facility] was concerned patient is declining, wanted to exclude any medical cause of patient's complaints. Overall workup was reassuring, including labs and CT head and abdomen/pelvis. [facility] after medical clearance. A referral has been placed to [facility] for Tab[facility]a psych placement by care management. As Jose is still sleeping after procedural sedation, plan to observe patient until he has returned to baseline mental status/wakefulness and discharge back to [facility] and rehab. [facility] is agreeable with plan of care. Last updated by Nereida Mantilla at 10/27/23 22:44 Discharge Plan Disposition Patient Disposition: Senior Living Facility(SNF) Condition: Good Discharge Details Clinical Impression: Dementia, Agitation Primary Care Provider: Wade Sharma ED Provider: Christine Herrmann Home Meds and New Rx's Prescriptions: Continued cholecalciferol (vitamin D3) 25 mcg (1,000 unit) capsule 25 mcg PO DAILY acetaminophen 325 mg capsule 650 mg PO Q6H PRN amlodipine 5 mg tablet 10 mg PO DAILY aspirin 81 mg tablet,chewable 81 mg PO DAILY atenolol 100 mg tablet 25 mg PO DAILY Combivent Respimat 20-100 mcg/actuation mist 1 puff inhalation QID Rx Instructions: space evenly during waking hours fluticasone propionate 50 mcg/actuation spray,suspension 1 spray intranasal DAILY PRN Rx Instructions: administer into each nostril folic acid 1 mg tablet 1 mg PO DAILY omeprazole 20 mg capsule,delayed release(DR/EC) 20 mg PO DAILY vitamin [id number] acid 500-400 mcg tablet 1 tab PO DAILY Rx Instructions: administer with a meal dicyclomine 20 mg tablet 40 mg PO ONCE PRN rosuvastatin 10 mg tablet 20 mg PO DAILY atorvastatin 40 mg tablet 40 mg PO DAILY Patient Comments: TAKE 1 TABLET BY MOUTH EVERY DAY clopidogrel 75 mg tablet 75 mg PO DAILY Patient Comments: TAKE 1 TABLET BY MOUTH DAILY divalproex [Depakote] 125 mg tablet,delayed release (DR/EC) 250 mg PO QHS divalproex [Depakote ER] 250 mg tablet extended release 24 hr 125 mg PO TID escitalopram oxalate 5 mg tablet 5 mg PO DAILY bisacodyl [Dulcolax (bisacodyl)] 10 mg suppository 10 mg MO DAILY PRN lisinopril 20 mg tablet 20 mg PO DAILY Patient Comments: TAKE 1 TABLET BY MOUTH DAILY magnesium oxide 400 mg (241.3 mg magnesium) tablet 400 mg PO DAILY Patient Comments: TAKE 1 TABLET BY MOUTH DAILY pantoprazole 20 mg tablet,delayed release (DR/EC) 40 mg PO DAILY Patient Comments: TAKE 1 TABLET BY MOUTH DAILY olanzapine [Zyprexa] 2.5 mg tablet 2.5 mg PO DAILY olanzapine [Zyprexa] 2.5 mg tablet 2.5 mg PO DAILY PRN donepezil 5 mg tablet 5 mg PO DAILY Discharge Instructions Instructions: Dementia (ED) Additional Instructions: Your test today are reassuring including her CT abdomen and pelvis and CT head Your anemia has worsened ever so slightly dropped from 9.5-8.3, recommend having this rechecked It sounds like you are increasing the Zyprexa to 5 mg twice a day A referral has been placed to [facility] for further assessment from a neuropsych standpoint Please return should you have new or worsening complaints Discharge Data Discharge Date/Time-TO BE ENTERED AT DEPARTURE: 10/28/23 01:28
[2023-10-28] VITALS (44 sets, daily range): BP systolic 151–188; BP diastolic 42–84; PULSE 44–51; RESP 10–20; TEMP 36.6; O2SAT 94–100
[2023-10-28 00:25] LABS: BE (Venous) 4 mmol/L (-2-3); HCO3 (Venous) 30 mmol/L (23-28); O2 Sat (Venous) 58 %; TCO2 (Venous) 28 mmol/L (24-29); pCO2 (Venous) 57 mmHg (41-51); pH (Venous) 7.33 (7.31-7.41); pO2 (Venous) 33 mmHg
[2023-10-28] MEDS: Normal Saline 1,000 ML 125 ML IV (00:26)
[2023-10-28 00:45] LABS: ALT 18 U/L (16-63); AST 15 U/L (15-37); Albumin 2.5 g/dL (3.4-5.0); Alkaline Phosphatase 92 U/L (46-116); Anion Gap 5.5 mmol/L (3-11); BUN 31 mg/dL (7-18); Bilirubin, Total 0.3 mg/dL (0.2-1.0); CO2 30.5 mmol/L (21.0-32.0); CREATININE 1.8 mg/dL (0.70-1.30); Calcium 8.7 mg/dL (8.5-10.1); Chloride 107 mmol/L (98-107); Estimated GFR 36.21 (mL/min/1.73m2); Glucose 100 mg/dL (74-106); Potassium 4.4 mmol/L (3.5-5.1); Sodium 143 mmol/L (136-145); Total Protein 6.2 g/dL (6.4-8.2)
== END 2023-10-28 01:28 | disposition skilled nursing facility (03) ==
PROVIDERS: Physician Assistant; Emergency Provider Student in an Organized Health Care Education/Training Program; PCP Family Medicine
DX: R41.82 Altered mental status, unspecified (principal); F01.511 Vascular dementia, unspecified severity, with agitation; E11.9 Type 2 diabetes mellitus without complications; I10 Essential (primary) hypertension; E78.5 Hyperlipidemia, unspecified; Z79.82 Long term (current) use of aspirin; Z87.891 Personal history of nicotine dependence; Z79.02 Long term (current) use of antithrombotics/antiplatelets
CPT/HCPCS: 00123; 71250; 80053; 82805; 93005; 96361; 96372; 96374; 99284; 70450; 74176; 81003; 81015; 83605; 84443; 85025; 93010; J1630; J2060